=== PATIENT | male | born 1935 | race Caucasian/White ===

== ENCOUNTER 2016-07-02 10:53 | Inpatient (IN) | payer MEDICARE ==
[~2016-07-02] VITALS: Ht 182.9 cm; Wt 84.1 kg
[2016-07-02] MEDS ORDERED: ASPIRIN 81 MG CHEW TAB ONE (11:20)
[2016-07-02] MEDS ORDERED: SODIUM CHLORIDE 0.9% 100 ML IV ONE (12:22)
[2016-07-02] MEDS ORDERED: CEFTRIAXONE 1 GM VIAL ONE (12:22)
[2016-07-02] MEDS ORDERED: DUONEB INH ONE (12:53)
[2016-07-02] MEDS ORDERED: NEB-ALBUTEROL 2.5 MG/3 ML INH PRN (13:20)
[2016-07-02] MEDS ORDERED: SALINE FLUSH 10 ML FLUSH PRN (13:30)
[2016-07-02] MEDS ORDERED: ACETAMINOPHEN 325 MG TAB PO PRN (13:30)
[2016-07-02] MEDS ORDERED: BISACODYL 10 MG SUPP RECTAL PRN (13:30)
[2016-07-02 15:15] VITALS: BP_SYST 122; BP_SYST 124; RESP 20; TEMP 98
[2016-07-02] MEDS: DIGOXIN 0.125 MG TAB PO SCH (15:15)
[2016-07-02] MEDS: Furosemide 40 MG TAB PO SCH (15:16)
[2016-07-02] MEDS: METOPROLOL XL 25 MG TAB PO SCH (15:16)
[2016-07-02] MEDS: DUONEB INH SCH ×3 (15:52→22:30)
[2016-07-02 15:53] VITALS: Ht 182.9 cm; Wt 84.1 kg
[2016-07-02 15:57] VITALS: RESP 18
[2016-07-02] MEDS: AZITHROMYCIN 500 MG in SODIUM CHLORIDE 0.9% 250 ML IV SCH (15:58)
[2016-07-02] MEDS: FLUCONAZOLE 100 MG TAB PO SCH (16:07)
[2016-07-02] MEDS: METHYLPRED SOD SUCC 125 MG/2 ML VIAL IV SCH ×2 (16:07→23:35)
[2016-07-02] MEDS ORDERED: MAGNESIUM SULF 1 GM/100 ML 100 ML IV ONE (17:05)
[2016-07-02 19:56] VITALS: BP_SYST 139; RESP 20; TEMP 97.7
[2016-07-02] MEDS: GUAIFENESIN ER 600 MG TABCR PO SCH (20:23)
[2016-07-02] MEDS: Atorvastatin 20 MG TAB PO SCH (20:23)
[2016-07-02] MEDS: ZOLPIDEM 5 MG TAB PO SCH (20:23)
[2016-07-02] MEDS: SALINE FLUSH 10 ML FLUSH SCH (20:24)
[2016-07-02 23:30] VITALS: BP_SYST 110; RESP 20; TEMP 97.7
[2016-07-03 04:38] VITALS: BP_SYST 119; RESP 18; TEMP 97.5
[2016-07-03] MEDS: SODIUM CHLORIDE 0.9% FLUSH BAG 500 ML IV SCH (05:43)
[2016-07-03] MEDS: DUONEB INH SCH ×5 (06:30→22:47)
[2016-07-03 07:36] VITALS: BP_SYST 137; RESP 18; TEMP 97.9
[2016-07-03] MEDS: SALINE FLUSH 10 ML FLUSH SCH ×2 (09:38→20:19)
[2016-07-03] MEDS: METHYLPRED SOD SUCC 40 MG VIAL IV SCH ×2 (09:38→16:17)
[2016-07-03] MEDS: GUAIFENESIN ER 600 MG TABCR PO SCH ×2 (09:38→20:20)
[2016-07-03] MEDS: FLUCONAZOLE 100 MG TAB PO SCH (09:38)
[2016-07-03] MEDS: METOPROLOL XL 25 MG TAB PO SCH (09:38)
[2016-07-03] MEDS: CEFTRIAXONE 1 GM in SODIUM CHLORIDE 0.9% 50 ML IV SCH (09:38)
[2016-07-03] MEDS: Furosemide 40 MG TAB PO SCH (09:39)
[2016-07-03] MEDS: AZITHROMYCIN 500 MG in SODIUM CHLORIDE 0.9% 250 ML IV SCH (10:26)
[2016-07-03 11:12] VITALS: BP_SYST 110; RESP 18; TEMP 98.3
[2016-07-03] MEDS: DIGOXIN 0.125 MG TAB PO SCH (11:14)
[2016-07-03 15:08] VITALS: BP_SYST 113; RESP 18; TEMP 97.6
[2016-07-03 19:42] VITALS: BP_SYST 137; RESP 16; TEMP 98.1
[2016-07-03] MEDS: ZOLPIDEM 5 MG TAB PO SCH (20:20)
[2016-07-03] MEDS: Atorvastatin 20 MG TAB PO SCH (20:20)
[2016-07-03 23:48] VITALS: BP_SYST 107; RESP 18; TEMP 97.9
[2016-07-04] MEDS: METHYLPRED SOD SUCC 40 MG VIAL IV SCH ×4 (00:35→23:00)
[2016-07-04 04:54] VITALS: BP_SYST 118; RESP 18; TEMP 97.6
[2016-07-04] MEDS: SODIUM CHLORIDE 0.9% FLUSH BAG 500 ML IV SCH (05:48)
[2016-07-04] MEDS: DUONEB INH SCH ×5 (06:43→22:29)
[2016-07-04 07:46] VITALS: BP_SYST 119; RESP 20; TEMP 97.6
[2016-07-04] MEDS: Furosemide 40 MG TAB PO SCH (08:47)
[2016-07-04] MEDS: FLUCONAZOLE 100 MG TAB PO SCH (08:47)
[2016-07-04] MEDS: METOPROLOL XL 25 MG TAB PO SCH (08:47)
[2016-07-04] MEDS: GUAIFENESIN ER 600 MG TABCR PO SCH ×2 (08:48→19:59)
[2016-07-04] MEDS: SALINE FLUSH 10 ML FLUSH SCH ×2 (08:48→19:59)
[2016-07-04] MEDS: CEFTRIAXONE 1 GM in SODIUM CHLORIDE 0.9% 50 ML IV SCH (08:48)
[2016-07-04] MEDS: AZITHROMYCIN 500 MG in SODIUM CHLORIDE 0.9% 250 ML IV SCH (09:00)
[2016-07-04 11:56] VITALS: BP_SYST 146; RESP 18; TEMP 97.5
[2016-07-04] MEDS: DIGOXIN 0.125 MG TAB PO SCH (12:21)
[2016-07-04 15:00] VITALS: BP_SYST 130; RESP 18
[2016-07-04 19:35] VITALS: BP_SYST 125; RESP 18; TEMP 97.7
[2016-07-04] MEDS: Atorvastatin 20 MG TAB PO SCH (19:59)
[2016-07-04] MEDS: ZOLPIDEM 5 MG TAB PO SCH (19:59)
[2016-07-05] VITALS (7 sets, daily range): BP systolic 96–144; RESP 16–18; TEMP 97.7–98.2
[2016-07-05] MEDS: SODIUM CHLORIDE 0.9% FLUSH BAG 500 ML IV SCH (05:47)
[2016-07-05] MEDS: DUONEB INH SCH ×6 (06:28→22:21)
[2016-07-05] MEDS ORDERED: Phytonadione 10 MG/ML AMP SUBQ ONE (06:35)
[2016-07-05] MEDS: Furosemide 40 MG TAB PO SCH (08:19)
[2016-07-05] MEDS: METOPROLOL XL 25 MG TAB PO SCH (08:19)
[2016-07-05] MEDS: SALINE FLUSH 10 ML FLUSH SCH ×2 (08:19→20:35)
[2016-07-05] MEDS: FLUCONAZOLE 100 MG TAB PO SCH (08:19)
[2016-07-05] MEDS: METHYLPRED SOD SUCC 40 MG VIAL IV SCH ×2 (08:19→20:35)
[2016-07-05] MEDS: GUAIFENESIN ER 600 MG TABCR PO SCH ×2 (08:20→20:35)
[2016-07-05] MEDS: AZITHROMYCIN 500 MG in SODIUM CHLORIDE 0.9% 250 ML IV SCH (08:20)
[2016-07-05] MEDS: CEFTRIAXONE 1 GM in SODIUM CHLORIDE 0.9% 50 ML IV SCH (08:20)
[2016-07-05] MEDS: DIGOXIN 0.125 MG TAB PO SCH (12:24)
[2016-07-05] MEDS ORDERED: MISSING DOSE XX ONE (16:00)
[2016-07-05] MEDS: BISACODYL EC 5 MG TAB PO PRN (16:13)
[2016-07-05] MEDS: ZOLPIDEM 5 MG TAB PO SCH (20:35)
[2016-07-05] MEDS: Atorvastatin 20 MG TAB PO SCH (20:35)
[2016-07-06] VITALS (14 sets, daily range): BP systolic 102–156; RESP 16–18; TEMP 97.2–99.6
[2016-07-06] MEDS: SODIUM CHLORIDE 0.9% FLUSH BAG 500 ML IV SCH (05:27)
[2016-07-06] MEDS: DUONEB INH SCH ×5 (06:44→22:09)
[2016-07-06] MEDS: CEFTRIAXONE 1 GM in SODIUM CHLORIDE 0.9% 50 ML IV SCH (08:40)
[2016-07-06] MEDS: METHYLPRED SOD SUCC 40 MG VIAL IV SCH (08:40)
[2016-07-06] MEDS: SALINE FLUSH 10 ML FLUSH SCH ×2 (08:40→20:48)
[2016-07-06] MEDS: GUAIFENESIN ER 600 MG TABCR PO SCH ×2 (08:41→20:43)
[2016-07-06] MEDS: Furosemide 40 MG TAB PO SCH (08:41)
[2016-07-06] MEDS: METOPROLOL XL 25 MG TAB PO SCH (08:41)
[2016-07-06] MEDS: FLUCONAZOLE 100 MG TAB PO SCH (08:41)
[2016-07-06] MEDS ORDERED: PHARMACY TO DOSE XX SCH (09:05)
[2016-07-06] MEDS: ENOXAPARIN 80 MG/0.8 ML SYR SUBQ SCH ×2 (10:00→22:12)
[2016-07-06] MEDS ORDERED: Furosemide 40 MG/4 ML VIAL IV ONE (11:50)
[2016-07-06] MEDS: DIGOXIN 0.125 MG TAB PO SCH (12:37)
[2016-07-06] MEDS: PREDNISONE 20 MG TAB PO SCH (12:38)
[2016-07-06] MEDS: CEFUROXIME 250 MG TAB PO SCH ×2 (12:38→20:43)
[2016-07-06] MEDS: Losartan 25 MG TAB PO SCH (12:46)
[2016-07-06] MEDS ORDERED: MISSING DOSE XX ONE ×2 (14:25→16:35)
[2016-07-06] MEDS: BISACODYL EC 5 MG TAB PO PRN (17:02)
[2016-07-06] MEDS: ZOLPIDEM 5 MG TAB PO SCH (20:42)
[2016-07-06] MEDS: Atorvastatin 20 MG TAB PO SCH (20:46)
[2016-07-07 03:00] VITALS: BP_SYST 113; RESP 18; TEMP 97.6
[2016-07-07] MEDS: SODIUM CHLORIDE 0.9% FLUSH BAG 500 ML IV SCH (04:42)
[2016-07-07] MEDS: DUONEB INH SCH ×5 (06:30→22:21)
[2016-07-07 07:38] VITALS: BP_SYST 130; RESP 18; TEMP 97.6
[2016-07-07] MEDS: CEFUROXIME 250 MG TAB PO SCH ×2 (08:58→19:56)
[2016-07-07] MEDS: Losartan 25 MG TAB PO SCH (08:58)
[2016-07-07] MEDS: METOPROLOL XL 25 MG TAB PO SCH (08:58)
[2016-07-07] MEDS: PREDNISONE 20 MG TAB PO SCH (08:59)
[2016-07-07] MEDS: Furosemide 40 MG TAB PO SCH (08:59)
[2016-07-07] MEDS: GUAIFENESIN ER 600 MG TABCR PO SCH ×2 (08:59→19:57)
[2016-07-07] MEDS: FLUCONAZOLE 100 MG TAB PO SCH (08:59)
[2016-07-07] MEDS: ENOXAPARIN 80 MG/0.8 ML SYR SUBQ SCH ×2 (09:00→19:58)
[2016-07-07 11:45] VITALS: BP_SYST 126; RESP 18; TEMP 97.7
[2016-07-07] MEDS: SALINE FLUSH 10 ML FLUSH SCH ×2 (12:47→19:55)
[2016-07-07] MEDS: DIGOXIN 0.125 MG TAB PO SCH (12:47)
[2016-07-07 15:47] VITALS: BP_SYST 121; RESP 18; TEMP 97.7
[2016-07-07] MEDS ORDERED: KCL CR 20 MEQ TAB PO ONE (17:25)
[2016-07-07] MEDS ORDERED: Furosemide 20 MG/2 ML VIAL IV ONE (17:30)
[2016-07-07] MEDS: Atorvastatin 20 MG TAB PO SCH (19:56)
[2016-07-07] MEDS: ZOLPIDEM 5 MG TAB PO SCH (19:56)
[2016-07-07] MEDS: KCL CR 20 MEQ TAB PO SCH (19:59)
[2016-07-07 20:05] VITALS: BP_SYST 126; RESP 18; TEMP 97.6
[2016-07-08] VITALS (7 sets, daily range): BP systolic 104–132; RESP 16–18; TEMP 97.5–98.1
[2016-07-08] MEDS: SODIUM CHLORIDE 0.9% FLUSH BAG 500 ML IV SCH (06:00)
[2016-07-08] MEDS: DUONEB INH SCH ×5 (06:41→22:49)
[2016-07-08] MEDS: METOPROLOL XL 25 MG TAB PO SCH (09:05)
[2016-07-08] MEDS: SPIRONOLACTONE 25 MG TAB PO SCH (09:05)
[2016-07-08] MEDS: FLUCONAZOLE 100 MG TAB PO SCH (09:05)
[2016-07-08] MEDS: GUAIFENESIN ER 600 MG TABCR PO SCH ×2 (09:05→21:07)
[2016-07-08] MEDS: PREDNISONE 20 MG TAB PO SCH (09:06)
[2016-07-08] MEDS: KCL CR 20 MEQ TAB PO SCH ×2 (09:06→21:07)
[2016-07-08] MEDS: CEFUROXIME 250 MG TAB PO SCH ×2 (09:06→21:06)
[2016-07-08] MEDS: BISACODYL EC 5 MG TAB PO PRN (09:06)
[2016-07-08] MEDS: Losartan 25 MG TAB PO SCH (09:06)
[2016-07-08] MEDS: Furosemide 40 MG/4 ML VIAL IV SCH (09:07)
[2016-07-08] MEDS: SALINE FLUSH 10 ML FLUSH SCH ×2 (09:07→19:37)
[2016-07-08] MEDS: ENOXAPARIN 80 MG/0.8 ML SYR SUBQ SCH ×2 (10:00→21:08)
[2016-07-08] MEDS: DIGOXIN 0.125 MG TAB PO SCH (12:06)
[2016-07-08] MEDS: Atorvastatin 20 MG TAB PO SCH (21:06)
[2016-07-08] MEDS: ZOLPIDEM 5 MG TAB PO SCH (21:07)
[2016-07-09 03:18] VITALS: BP_SYST 120; RESP 16; TEMP 97.8
[2016-07-09] MEDS: SODIUM CHLORIDE 0.9% FLUSH BAG 500 ML IV SCH (05:27)
[2016-07-09] MEDS: DUONEB INH SCH ×5 (06:52→22:21)
[2016-07-09 07:27] VITALS: BP_SYST 128; RESP 18; TEMP 97.5
[2016-07-09] MEDS: Furosemide 40 MG/4 ML VIAL IV SCH (09:19)
[2016-07-09] MEDS: SALINE FLUSH 10 ML FLUSH SCH ×2 (09:19→19:57)
[2016-07-09] MEDS: GUAIFENESIN ER 600 MG TABCR PO SCH ×2 (09:20→19:58)
[2016-07-09] MEDS: METOPROLOL XL 25 MG TAB PO SCH (09:20)
[2016-07-09] MEDS: FLUCONAZOLE 100 MG TAB PO SCH (09:20)
[2016-07-09] MEDS: Losartan 25 MG TAB PO SCH (09:20)
[2016-07-09] MEDS: PREDNISONE 20 MG TAB PO SCH ×2 (09:20→18:00)
[2016-07-09] MEDS: SPIRONOLACTONE 25 MG TAB PO SCH (09:20)
[2016-07-09] MEDS: KCL CR 20 MEQ TAB PO SCH ×2 (09:20→19:58)
[2016-07-09] MEDS: ENOXAPARIN 80 MG/0.8 ML SYR SUBQ SCH ×2 (09:21→22:16)
[2016-07-09 11:12] VITALS: BP_SYST 108; RESP 20; TEMP 98
[2016-07-09] MEDS: DIGOXIN 0.125 MG TAB PO SCH (11:40)
[2016-07-09 15:35] VITALS: BP_SYST 105; RESP 18; TEMP 98.2
[2016-07-09 19:37] VITALS: BP_SYST 102; RESP 18; TEMP 98
[2016-07-09] MEDS: Atorvastatin 20 MG TAB PO SCH (19:58)
[2016-07-09] MEDS: AMOXICILLIN/CLAV 875 MG TAB PO SCH (19:58)
[2016-07-09] MEDS: ZOLPIDEM 5 MG TAB PO SCH (19:58)
[2016-07-09 23:10] VITALS: BP_SYST 127; RESP 18; TEMP 97.7
[2016-07-09] MEDS: SACCHA BOULARDII 250MG CAP PO SCH (23:55)
[2016-07-10 03:07] VITALS: BP_SYST 108; RESP 18; TEMP 97.5
[2016-07-10] MEDS: SODIUM CHLORIDE 0.9% FLUSH BAG 500 ML IV SCH (06:00)
[2016-07-10] MEDS: DUONEB INH SCH ×3 (06:18→14:12)
[2016-07-10 07:30] VITALS: BP_SYST 117; RESP 16; TEMP 97.8
[2016-07-10] MEDS: PREDNISONE 20 MG TAB PO SCH (08:23)
[2016-07-10] MEDS: Losartan 25 MG TAB PO SCH (08:23)
[2016-07-10] MEDS: SPIRONOLACTONE 25 MG TAB PO SCH (08:23)
[2016-07-10] MEDS: METOPROLOL XL 25 MG TAB PO SCH (08:23)
[2016-07-10] MEDS: KCL CR 20 MEQ TAB PO SCH (08:23)
[2016-07-10] MEDS: SACCHA BOULARDII 250MG CAP PO SCH ×2 (08:23→16:12)
[2016-07-10] MEDS: AMOXICILLIN/CLAV 875 MG TAB PO SCH (08:24)
[2016-07-10] MEDS: Furosemide 40 MG/4 ML VIAL IV SCH (08:24)
[2016-07-10] MEDS: SALINE FLUSH 10 ML FLUSH SCH (08:24)
[2016-07-10] MEDS: GUAIFENESIN ER 600 MG TABCR PO SCH (08:24)
[2016-07-10 11:39] VITALS: BP_SYST 110; RESP 18; TEMP 98.7
[2016-07-10] MEDS: DIGOXIN 0.125 MG TAB PO SCH (12:03)
[2016-07-10 15:38] VITALS: BP_SYST 111; RESP 18; TEMP 97.9
[2016-07-10 17:11] VITALS: BP_SYST 111; RESP 18; TEMP 97.9
== END 2016-07-10 17:51 | disposition home or self-care (01) | DRG 189 ==
LOC: ENRESERVTM → ENRESERVDT → ER 10:53 → ENPENDDIS 13:28 → EMR 13:28 → 4THE 15:11
PROVIDERS: ADMIT Internal Medicine; ATTEND Internal Medicine
PROC: 0W9B3ZX Drainage of Left Pleural Cavity, Percutaneous Approach, Diagnostic (ICD-10-PCS; principal; 2016-07-06)
DX: J96.21 Acute and chronic respiratory failure with hypoxia (principal); J18.9 Pneumonia, unspecified organism; I11.0 Hypertensive heart disease with heart failure; B37.0 Candidal stomatitis; J44.0 Chronic obstructive pulmonary disease with (acute) lower respiratory infection; I50.42 Chronic combined systolic (congestive) and diastolic (congestive) heart failure; J90 Pleural effusion, not elsewhere classified; J44.1 Chronic obstructive pulmonary disease with (acute) exacerbation; Z99.81 Dependence on supplemental oxygen; I48.2 Chronic atrial fibrillation; J96.22 Acute and chronic respiratory failure with hypercapnia; Z79.01 Long term (current) use of anticoagulants; E78.5 Hyperlipidemia, unspecified; Z95.2 Presence of prosthetic heart valve; I25.10 Atherosclerotic heart disease of native coronary artery without angina pectoris; Z95.1 Presence of aortocoronary bypass graft; Z87.891 Personal history of nicotine dependence; F10.21 Alcohol dependence, in remission; E04.1 Nontoxic single thyroid nodule; J20.9 Acute bronchitis, unspecified
CPT/HCPCS: 36415; 36430; 36600; 71010; 71020; 71250; 76536; 80048; 80053; 80162; 81003; 82150; 82550; 82803; 82945; 83605; 83615; 83735; 83880; 83986; 84155; 84439; 84443; 84478; 84484; 85025; 85610; 85730; 86738; 86927; 87040; 87071; 87116; 87205; 87206; 87278; 87299; 87804; 88108; 89051; 93005; 93306; 94640; 94799; 96365; 99232; 99233; 99239